=== PATIENT | female | born 1950 | race African-American/Black ===

== ENCOUNTER 2021-05-22 10:32 | Inpatient (IN) | payer MEDICARE, SELFPAY ==
[2021-05-22] MEDS ORDERED: Acetaminophen 325 MG TAB PO PRN ×2 (13:03→17:08)
[2021-05-22] MEDS ORDERED: Dextrose 50% Abboject 50 ML SYRINGE SLOW IVP PRN (13:26)
[2021-05-22] MEDS ORDERED: Dextrose 5% in Water 1,000 ML IV PRN (13:26)
[2021-05-22] MEDS ORDERED: HumaLOG 300 UNITS/3 ML VIAL SC PRN ×2 (13:26)
[2021-05-22 13:33] VITALS: BMI 28.8
[2021-05-22 14:09] LABS: Hemoglobin A1c 7.1 % (4.0-6.0)
[2021-05-22 14:13] LABS: Bilirubin Negative (Negative); Blood, Urine Negative (Negative); Clarity Clear (Clear); Glucose, Urine (Dipstick) 150 mg/dL (Negative); Ketone, Urine Trace mg/dL (Negative); Leukocyte Negative Leu/uL (Negative); Nitrite Negative (Negative); Protein, Urine (Dipstick) Negative (Neg-Trace); RBC/HPF 0-3 HPF (0-3); Specific Gravity, Urine 1.006 (1.002-1.036); Squamous Epithelial 0-3 HPF (0-3); Urobilinogen Normal mg/dL (Less than 2); WBC/HPF 0-3 HPF (0-3); pH, Urine 7.5 (5.0-9.0)
[2021-05-22 14:19] LABS: Bacteria/HPF 1+ HPF (None Seen)
[2021-05-22] MEDS: hydrALAZINE 20 MG/ML VIAL SLOW IVP PRN (15:19)
[2021-05-22 16:10] LABS: CKMB 2.1 ng/mL (0-6.6)
[2021-05-22] MEDS ORDERED: Acetaminophen/Codeine 30-300mg Tablet PO PRN (17:07)
[2021-05-22] MEDS: metFORMIN 500 MG TAB PO SCH (17:11)
[2021-05-22 22:05] LABS: Troponin I 0.334 ng/mL (< 0.028)
[2021-05-22 22:52] LABS: INR-International Normal Ratio 1.1; PTT 29.3 sec (22.9-36.1); Prothrombin Time 13.8 sec (12.0-14.7)
[2021-05-22 22:57] LABS: ALT (SGPT) 8 U/L (8-55); AST (SGOT) 12 U/L (5-34); Albumin 3.9 g/dL (3.4-4.8); Alkaline Phosphatase 84 U/L (40-110); Anion Gap 15 mmol/L (10-20); BUN (Urea Nitrogen) 25 mg/dL (9.8-20.1); Bilirubin, Total 0.3 mg/dL (0.2-1.2); Calc. Creatinine Clearance 62 mL/min (70-130); Calcium 10.6 mg/dL (7.8-10.44); Carbon Dioxide 23 mmol/L (23-31); Chloride 103 mmol/L (98-107); Globulin 3.9 g/dL (2.4-3.5); Glucose 156 mg/dL (80-115); Protein, Total 7.8 g/dL (5.8-8.1); Sodium 137 mmol/L (136-145)
[2021-05-22 23:02] LABS: #Lymphocytes 1.9 thou/uL (1.20-3.40); #Monocytes 0.8 thou/uL (0.11-0.59); #Neutrophils 9.5 thou/uL (1.40-6.50); %Basophils 0.1 % (0.0-1.0); %Eosinophils 0.2 % (0.0-10.0); %Lymphocytes 15.5 % (21.0-51.0); %Monocytes 6.4 % (0.0-10.0); %Neutrophils 77.9 % (42.0-75.0); Hemoglobin 10.8 g/dL (12.0-16.0); MDiff Complete? YES; Mean Corpuscular HGB CONC 34.1 g/dL (32.0-36.0); Mean Corpuscular Hemoglobin 25.3 pg (27.0-31.0); Mean Corpuscular Volume 74.1 fL (78.0-98.0); Mean Platelet Volume 7.4 fL (7.4-10.4); Microcytosis SLIGHT = 6-15 cells (100X) (0-5/hpf); Platelet Count 329 thou/uL (130-400); RBC Distribution Width 13.5 % (11.5-14.5); Red Blood Cell (RBC) Count 4.25 mill/uL (4.20-5.40); White Blood Cell (WBC) Count 12.2 thou/uL (4.8-10.8)
[2021-05-22] MEDS ORDERED: Heparin 25,000 units/D5W 500 ML IVPB SCH (23:15)
[2021-05-22] MEDS: Heparin 10,000 UNITS/ 10 ML VIAL SLOW IVP SCH (23:41)
[2021-05-23 02:08] LABS: Troponin I 0.415 ng/mL (< 0.028)
[2021-05-23 06:26] LABS: Prothrombin Time 13.1 sec (12.0-14.7)
[2021-05-23 06:27] LABS: PTT 39.5 sec (22.9-36.1)
[2021-05-23] MEDS: Lactated Ringer's 1,000 ML IV SCH ×3 (07:08→23:09)
[2021-05-23] MEDS: Heparin 10,000 UNITS/ 10 ML VIAL SLOW IVP SCH (07:09)
[2021-05-23 07:38] LABS: Phosphorus 3.6 mg/dL (2.3-4.7)
[2021-05-23 07:44] LABS: ALT (SGPT) 11 U/L (8-55); AST (SGOT) 16 U/L (5-34); Albumin 3.6 g/dL (3.4-4.8); Alkaline Phosphatase 85 U/L (40-110); Anion Gap 16 mmol/L (10-20); BUN (Urea Nitrogen) 31 mg/dL (9.8-20.1); Bilirubin, Total 0.3 mg/dL (0.2-1.2); Calc. Creatinine Clearance 75 mL/min (70-130); Calcium 10.3 mg/dL (7.8-10.44); Carbon Dioxide 21 mmol/L (23-31); Chloride 102 mmol/L (98-107); Globulin 3.7 g/dL (2.4-3.5); Glucose 139 mg/dL (80-115); Magnesium 1.7 mg/dL (1.6-2.6); Potassium 3.9 mmol/L (3.5-5.1); Protein, Total 7.3 g/dL (5.8-8.1); Sodium 135 mmol/L (136-145)
[2021-05-23] MEDS: Hydrochlorothiazide 25 MG TAB PO SCH (08:33)
[2021-05-23] MEDS: Aspirin 325 mg Enteric Coated Tablet PO SCH (08:33)
[2021-05-23] MEDS: metFORMIN 500 MG TAB PO SCH ×2 (08:33→17:19)
[2021-05-23] MEDS: predniSONE 20 MG TAB PO SCH (08:34)
[2021-05-23] MEDS: Metoprolol Tartrate 25 MG TAB PO SCH (08:34)
[2021-05-23] MEDS ORDERED: guaiFENesin 200 MG TAB PO PRN (09:21)
[2021-05-23] MEDS ORDERED: Clopidogrel Bisulfate 75 MG TAB PO SCH (16:45)
[2021-05-23] MEDS: Enoxaparin Sodium 40 MG/0.4 ML SYRINGE SC SCH (20:22)
[2021-05-23] MEDS: hydrALAZINE 20 MG/ML VIAL SLOW IVP PRN (23:16)
[2021-05-24] MEDS ORDERED: Ondansetron PF 4 MG/2 ML Vial IVP SCH (03:30)
[2021-05-24] MEDS: Lactated Ringer's 1,000 ML IV SCH (07:39)
[2021-05-24] MEDS: Polyethylene Glycol 3350 17 GM Packet PO SCH (08:32)
[2021-05-24] MEDS: Aspirin 325 mg Enteric Coated Tablet PO SCH (08:32)
[2021-05-24] MEDS: metFORMIN 500 MG TAB PO SCH ×2 (08:33→16:51)
[2021-05-24] MEDS: Clopidogrel Bisulfate 75 MG TAB PO SCH (08:33)
[2021-05-24] MEDS: Metoprolol Tartrate 25 MG TAB PO SCH (08:33)
[2021-05-24] MEDS: predniSONE 20 MG TAB PO SCH (08:33)
[2021-05-24] MEDS: Hydrochlorothiazide 25 MG TAB PO SCH (08:34)
[2021-05-24] MEDS ORDERED: Metoprolol Tartrate 25 MG TAB PO SCH (11:30)
[2021-05-24] MEDS ORDERED: Amlodipine 5 MG TAB PO SCH ×2 (16:45→21:00)
[2021-05-24] MEDS ORDERED: Rosuvastatin 20 MG TAB PO SCH (21:00)
[2021-05-24] MEDS ORDERED: Atorvastatin Calcium 40 MG TAB PO SCH (21:00)
[2021-05-24] MEDS: Metoprolol Tartrate 50 MG TAB PO SCH (21:15)
[2021-05-24] MEDS: Enoxaparin Sodium 40 MG/0.4 ML SYRINGE SC SCH (21:15)
[2021-05-25] MEDS ORDERED: Glycerin Adult Supp. (24 ct jar) PR SCH (07:30)
[2021-05-25] MEDS ORDERED: Aspirin 325 mg Enteric Coated Tablet PO SCH (08:10)
[2021-05-25] MEDS ORDERED: Aspirin 81 mg Enteric Coated Tablet PO SCH (09:00)
[2021-05-25] MEDS ORDERED: Amlodipine 10 MG TAB PO SCH (09:00)
[2021-05-25] MEDS: Polyethylene Glycol 3350 17 GM Packet PO SCH (09:04)
[2021-05-25] MEDS: Clopidogrel Bisulfate 75 MG TAB PO SCH (09:06)
[2021-05-25] MEDS: Hydrochlorothiazide 25 MG TAB PO SCH (09:06)
[2021-05-25] MEDS: metFORMIN 500 MG TAB PO SCH ×2 (09:06→18:18)
[2021-05-25] MEDS: predniSONE 20 MG TAB PO SCH (09:07)
[2021-05-25] MEDS: Metoprolol Tartrate 50 MG TAB PO SCH (09:09)
[2021-05-25 12:04] LABS: #Basophils 0.1 thou/uL (0.0-0.2); #Eosinphils 0.1 thou/uL (0.0-0.7); #Lymphocytes 2.4 thou/uL (1.20-3.40); #Monocytes 0.5 thou/uL (0.11-0.59); #Neutrophils 5.2 thou/uL (1.40-6.50); %Basophils 0.7 % (0.0-1.0); %Eosinophils 0.9 % (0.0-10.0); %Lymphocytes 29.1 % (21.0-51.0); %Monocytes 6.1 % (0.0-10.0); %Neutrophils 63.1 % (42.0-75.0); Mean Corpuscular Hemoglobin 24.1 pg (27.0-31.0); Mean Corpuscular Volume 75.4 fL (78.0-98.0); Mean Platelet Volume 7.7 fL (7.4-10.4); Platelet Count 313 thou/uL (130-400); RBC Distribution Width 13.5 % (11.5-14.5); Red Blood Cell (RBC) Count 4.14 mill/uL (4.20-5.40); White Blood Cell (WBC) Count 8.2 thou/uL (4.8-10.8)
[2021-05-25 12:22] LABS: ALT (SGPT) 11 U/L (8-55); AST (SGOT) 14 U/L (5-34); Albumin 3.5 g/dL (3.4-4.8); Alkaline Phosphatase 70 U/L (40-110); Anion Gap 14 mmol/L (10-20); BUN (Urea Nitrogen) 18 mg/dL (9.8-20.1); Bilirubin, Total 0.3 mg/dL (0.2-1.2); Calc. Creatinine Clearance 85 mL/min (70-130); Calcium 10.3 mg/dL (7.8-10.44); Carbon Dioxide 25 mmol/L (23-31); Chloride 101 mmol/L (98-107); Globulin 3.5 g/dL (2.4-3.5); Glucose 172 mg/dL (80-115); Potassium 3.6 mmol/L (3.5-5.1); Sodium 136 mmol/L (136-145)
[2021-05-25 17:24] VITALS: BP 104/75; TEMP 98.2
== END 2021-05-25 19:41 | disposition home or self-care (01) | DRG 915 ==
LOC: IMCU/EMU 11:09 → 2SW 05-23 18:21
PROVIDERS: ADMIT Student in an Organized Health Care Education/Training Program; ATTEND Student in an Organized Health Care Education/Training Program
DX: T78.3XXA Angioneurotic edema, initial encounter (principal); I21.A1 Myocardial infarction type 2; I47.1 Supraventricular tachycardia; E11.9 Type 2 diabetes mellitus without complications; D50.9 Iron deficiency anemia, unspecified; I10 Essential (primary) hypertension; J44.9 Chronic obstructive pulmonary disease, unspecified; I25.10 Atherosclerotic heart disease of native coronary artery without angina pectoris; E78.5 Hyperlipidemia, unspecified; T46.4X5A Adverse effect of angiotensin-converting-enzyme inhibitors, initial encounter; F17.210 Nicotine dependence, cigarettes, uncomplicated; Z95.1 Presence of aortocoronary bypass graft; Z88.8 Allergy status to other drugs, medicaments and biological substances; Z79.82 Long term (current) use of aspirin; Z79.02 Long term (current) use of antithrombotics/antiplatelets; Z79.899 Other long term (current) drug therapy; Z79.84 Long term (current) use of oral hypoglycemic drugs; Z90.710 Acquired absence of both cervix and uterus; Z98.890 Other specified postprocedural states; Z95.5 Presence of coronary angioplasty implant and graft
CPT/HCPCS: 36415; 36416; 80053; 80061; 81001; 82553; 83036; 83735; 84100; 84443; 84484; 85025; 85610; 85730; 87086; 93005; 93010; 94640; J0360; J1644; J1650; J1815; J2405; J7120; J7512; J7620